=== PATIENT | male | born 1980 | race Hispanic/Latino ===

== ENCOUNTER 2021-12-24 22:46 | Emergency (ER) | payer OTHER ==
[2021-12-24 23:19] VITALS: BP 100/58
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
[2021-12-25] MEDS ORDERED: IBUPROFEN 800 MG TAB PO ONE (01:40)
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
== END 2021-12-25 03:17 | disposition home or self-care (01) ==
LOC: ED 22:46
DX: S39.012A Strain of muscle, fascia and tendon of lower back, initial encounter (principal); S16.1XXA Strain of muscle, fascia and tendon at neck level, initial encounter; X58.XXXA Exposure to other specified factors, initial encounter; Y93.89 Activity, other specified; Y92.89 Other specified places as the place of occurrence of the external cause; Y99.8 Other external cause status
CPT/HCPCS: 72040; 72100; 99283